=== PATIENT | male | born 1950 | race Caucasian/White ===

== ENCOUNTER → 2016-07-28 | Outpatient (CLI) | payer OTHER ==
--- NOTE | 2016-07-29 09:13 | RAD ---
EXAM DESCRIPTION: KUB CLINICAL HISTORY: KIDNEY STONES COMPARISON: April 30, 2015 IMPRESSION: Single AP supine view of the abdomen obtained on 2 radiographs shows a nonspecific bowel gas pattern. There is a moderate amount of formed fecal material throughout the colon suggesting constipation or obstipation. Kidneys are partly obscured by overlying bowel gas limiting evaluation. No definite calcifications are seen in the expected location of the kidneys or ureters. Moderate degenerative changes of the spine are seen with mild dextrocurvature. Cholecystectomy changes are identified. Electronically signed by: Zach Blair MD 07/29/2016 9:12 AM CDT
== END ==
LOC: RAD 13:31
PROVIDERS: ATTEND Urology
DX: N20.0 Calculus of kidney (principal)

== ENCOUNTER → 2017-12-07 | Outpatient (CLI) | payer OTHER ==
--- NOTE | 2017-12-07 15:49 | RAD ---
EXAM DESCRIPTION: XR ABDOMEN 1 VIEW (KUB) CLINICAL HISTORY: KIDNEY STONES COMPARISON: July 28, 2016 TECHNIQUE: KUB FINDINGS: Single view of the abdomen suggest two small less than 5 mm calculi overlying the upper and mid pole of the right kidney with no definite left renal calculi evident. Moderately advanced degenerative disc disease and modest dextroscoliosis of the spine is apparent. The bowel gas pattern is normal. Right and to a lesser extent left-sided pelvic phleboliths are unchanged from prior remote study. IMPRESSION: Probable two small calculi overlying the upper and mid pole of the right kidney. Electronically signed by: Dave Stewart MD 12/07/2017 3:47 PM CDT
== END ==
LOC: RAD 14:36
PROVIDERS: ATTEND Urology
DX: N20.0 Calculus of kidney (principal)

== ENCOUNTER → 2019-03-14 | Outpatient (CLI) | payer OTHER ==
--- NOTE | 2019-03-15 08:08 | RAD ---
Procedure: XR ABDOMEN 1 VIEW (KUB) Exam Date: 03/14/2019 Ordering Provider: ALLIE CONNER Clinical Indication: KIDNEY STONES Comparison: 12/07/2017 Findings: Punctate calcific densities projecting over the expected region of the right kidney, not significantly changed from prior. Pelvic phleboliths. Nonobstructive bowel gas pattern. Scoliosis. Lumbar spondylosis. Impression: 1. Right nephrolithiasis similar to prior. Electronically signed by: Helio Allen MD 03/15/2019 8:06 AM [facility]
== END ==
LOC: RAD 13:46
PROVIDERS: ATTEND Urology
DX: N20.0 Calculus of kidney (principal)

== ENCOUNTER → 2020-03-05 | Outpatient (CLI) | payer OTHER ==
--- NOTE | 2020-03-06 10:57 | RAD ---
XR ABDOMEN 1 VIEW (KUB) HISTORY: 69 years Male RENAL STONES COMPARISON: March 14, 2019. TECHNIQUE: Single AP view of the abdomen. FINDINGS: Bowel gas pattern is nonspecific. No evidence of gastrointestinal obstruction. No radiographic evidence of free air. Punctate and amorphous small (2-3 mm) calcifications are seen in the left abdomen at the superior margin of the image, projecting superior to the location of the renal silhouette. These may represent incidental soft tissue calcification. Cholecystectomy clips again noted. Included osseous structures demonstrate no acute abnormality. Scoliotic curvature of the lumbar spine again noted. IMPRESSION: No definite radiographic evidence of nephrolithiasis. Electronically signed by: Ntahan Crockett MD 03/06/2020 10:55 AM [employer]
== END ==
LOC: RAD 14:45
PROVIDERS: ATTEND Urology
DX: N28.9 Disorder of kidney and ureter, unspecified (principal)